=== PATIENT | male | born 1955 | race Caucasian/White ===

== ENCOUNTER → 2019-12-26 | Outpatient (CLI) | payer BC, SELFPAY ==
--- NOTE | 2019-12-27 10:09 | TELEMED_ITS ---
[facility] has confirmed receipt of a request for visit. This document confirms receipt of the order initiating the consult. To find the results of the consultation, please view the patient's reports for the scanned Telemed Consult.
== END | disposition home or self-care (01) ==
PROVIDERS: PCP Family Medicine; Referring Provider Psychiatry & Neurology Sleep Medicine; Visit Provider Psychiatry & Neurology Sleep Medicine
DX: R41.89 Other symptoms and signs involving cognitive functions and awareness (principal); F03.90 Unspecified dementia, unspecified severity, without behavioral disturbance, psychotic disturbance, mood disturbance, and anxiety; R47.01 Aphasia
CPT/HCPCS: 95819

== ENCOUNTER 2025-03-18 21:15 | Emergency (ER) | payer MEDICARE, SELFPAY ==
[2025-03-18 21:17] VITALS: BP 155/86; PULSE 65; RESP 16; TEMP 36.6; O2SAT 98
[2025-03-18 22:15] VITALS: BP 110/75; PULSE 55; O2SAT 100
--- NOTE | 2025-03-18 22:35 | CT_ITS ---
PROCEDURE: CT/Brain/Head without Contrast
[2025-03-18] MEDS: 0.9% Normal Saline (1000mL) 1,000 ML 1000 ML IV (22:53)
--- NOTE | 2025-03-18 22:56 | EX.ED.DYSGE1 ---
HPI History of Present Illness Chief Complaint: Confusion Narrative Narrative: Patient was seen and examined after presenting to ED for shortness of breath earlier but it seems to have resolved patient has some pretty advanced dementia states that they had an MRI on Thursday which showed a small amount of blood in the brain he had a because he has been having more advanced changes suspected to be associated with his dementia as she states that she came in understand him talking anymore at this point. [facility] Medical History Brain bleed HTN (hypertension) Dementia Home Medications ?Medication ?Instructions ?Recorded ?Last Taken ?Type donepezil 10 mg tablet 10 mg PO DAILY 03/18/25 Unknown History memantine 10 mg tablet 10 mg PO BID 03/18/25 Unknown History propranolol 60 mg capsule,24 60 mg PO DAILY 03/18/25 Unknown History hr,extended release Allergy/AdvReac Type Severity Reaction Status Date / Time No Known Allergies Allergy Verified 03/18/25 21:22 Surgical History History of hernia surgery Social History Smoking Status: Former smoker ROS ROS ED ROS Narrative Pertinent Positives:. Shortness of breath now resolved Pertinent Negatives: Fevers chills vomiting diarrhea chest pain pressure urinary symptoms abdominal pain black or bloody stools The remainder of review of systems negative unless otherwise stated in the HPI above. Systems reviewed including constitutional, psychiatric, cardiovascular, respiratory, integument, HENT, gastrointestinal. EXAM Physical Exam Narrative Exam Narrative: Patient is afebrile hemodynamically stable does not appear toxic or in distress he is oxygenating well on room air his lungs are clear normal heart sounds. His speech is very difficult to understand he mostly mumbles abdomen is soft nontender nondistended no palpable pulsatile mass. Intact and equal MSPs no lower extremity edema or calf tenderness. Const Vital Signs: 03/18/25 21:17 03/18/25 22:15 03/18/25 23:21 Temperature 97.9 F Temperature Source Oral Pulse Rate 65 55 L 57 L Respiratory Rate 16 16 Blood Pressure 155/86 H 110/75 120/80 Blood Pressure Mean 109 86 93 Pulse Ox 98 100 100 Oxygen Delivery Method Room Air 03/18/25 23:45 Temperature Temperature Source Pulse Rate 70 Respiratory Rate 20 H Blood Pressure 123/77 H Blood Pressure Mean 92 Pulse Ox 100 Oxygen Delivery Method Room Air MDM MDM MDM Narrative Medical decision making narrative: Nursing notes, triage notes, available previous documentation, and vital signs were reviewed. Any discrepancies noted were addressed. Differential Diagnoses: There is suspicion for ACS aortic etiology respiratory could be a consideration such as a URI lower suspicion for a PE lower suspicion for any neurologic changes or worsening intracranial bleeding Interventions: Fluids Given: 1 L normal saline Labs Reviewed: No leukocytosis leukopenia anemia electrolyte abnormality renal insufficiency lactic acid less than 1 no transaminitis troponin was less than 6 proBNP was less than 36 Respiratory panel was negative. Imaging Reviewed: Personally reviewed and interpreted by me: Chest x-ray I did not see any pneumonia edema widened mediastinum or pneumothoraces. I reviewed CT head I did not see any obvious abnormalities official interpretation is agreeable EKG: Sinus bradycardia rate of 55. There is some motion artifact. No ST segment elevation. No QTc prolongation. W[place] intervals otherwise appropriate. EKG interpretation is noted and agreed to in the EMR. The interpretation of this patient's EKG contributed directly to the care and management of this patient. Previous Documentation Reviewed: None available or applicable at this time. ED Course: Patient presenting with symptoms as described above however she states that once EMS arrived patient suddenly was better no more complaints as far shortness of breath he is acting appropriately so she just wants to get him evaluated and plans to go home afterwards for any significant complications. Patient would like to go home soon with his they feel comfortable going home return precautions follow-up recommendations provided patient stable for discharge This note was made utilizing voice recognition software. All attempts were made to correct spelling or other errors prior to note completion. However, due to the fast-paced nature of emergency medicine, some errors may still be present. Lab Data Labs: Laboratory Results - last 24 hr 03/18/25 03/18/25 03/18/25 20:55 22:05 22:52 WBC 8.6 RBC 5.18 Hgb 15.3 Hct 45.1 MCV 87.1 MCH 29.5 MCHC 33.9 RDW Std Deviation 41.3 RDW Coeff of Aditya 13.1 Plt Count 301 MPV 10.7 Immature Gran % (Auto) 0.300 Neut % (Auto) 74.4 H Lymph % (Auto) 16.1 L Willacy % (Auto) 6.5 Eos % (Auto) 2.2 Baso % (Auto) 0.5 Absolute Neuts (auto) 6.4 Absolute Lymphs (auto) 1.39 Nucleated RBC % 0 Sodium 141 Potassium 4.1 Chloride 106 Carbon Dioxide 25.5 Anion Gap 10 BUN 16 Creatinine 0.95 Estim Creat Clear Calc 76.84 Est GFR (MDRD) Non-Af 87 BUN/Creatinine Ratio 16.3 Glucose 90 Lactic Acid < 1.0 Calcium 9.6 Total Bilirubin 0.51 AST 23 ALT 13 Alkaline Phosphatase 82 Troponin T High Sens < 6 NT pro BNP II < 36 Total Protein 7.0 Albumin 4.1 Globulin 2.8 Albumin/Globulin Ratio 1.5 Radiography Diagnostic Testing: Clinical Impression(s) from Imaging Studies Brain CT 03/18/25 22:35 IMPRESSION: No acute cerebrovascular abnormalities. If clinical symptoms persist, further evaluation with MRI may be considered as clinically warranted. No intra or extra-axial acute hemorrhage. Bilateral cerebral microvascular ischemic changes with brain involutional changes. Reading Location: [place] [address] Chest X-Ray 03/18/25 23:10 IMPRESSION: No acute cardiopulmonary disease. Reading Location: [id number] Discharge Plan Triage Chief Complaint: Confusion ED Provider: Hilda Morales Dx/Rx/DC Orders Clinical Impression: Mild shortness of breath, History of intracranial hemorrhage, History of dementia Instructions: ED Dyspnea Prescriptions: No Action donepezil 10 mg tablet 10 mg PO DAILY propranolol 60 mg capsule,extended release 24 hr 60 mg PO DAILY memantine 10 mg tablet 10 mg PO BID Primary Care Provider: Jarrett Griggs Referrals: Jarrett Griggs MD [Primary Care Provider, Medical] Activity Restrictions/Additional Instructions: Follow-up with your primary care doctor if you are having worsening symptoms do not hesitate to return Print Language: Hungarian Disposition Disposition: Home, Self Care
[2025-03-18 23:04] LABS: Hematocrit 45.1 % (40-54); Hemoglobin 15.3 g/dL (13.0-16.5); Immature Granulocytes Count 0.030 X10^3/uL (0.0-0.0); Mean Corp Hgb Conc 33.9 g/dL (32-36); Mean Corpuscular Volume 87.1 fL (80-94); Mean Platelet Vol. 10.7 fl (6.2-12.0); NRBC Flagged by Analyzer 0 % (0-5); Platelet Count 301 K/mm3 (150-450); RBC Distribution Width CV 13.1 % (11.6-14.6); RBC Distribution Width SD 41.3 fl (35.1-43.9); Red Blood Count 5.18 M/mm3 (4.6-6.2); White Blood Count 8.6 K/mm3 (4.4-11.0)
--- NOTE | 2025-03-18 23:10 | RAD_ITS ---
PROCEDURE: RAD/Chest 1 View (Portable)
[2025-03-18 23:14] VITALS: BMI 26.6
[2025-03-18 23:21] VITALS: BP 120/80; PULSE 57; RESP 16; O2SAT 100
[2025-03-18 23:22] LABS: Troponin T High Sensitivity < 6 ng/L (<=22)
[2025-03-18 23:37] LABS: AST(SGOT) 23 U/L (<=37); Alanine Aminotransfer ALT/SGPT 13 U/L (<=46); Albumin, Serum 4.1 g/dL (3.4-4.8); Alkaline Phosphatase 82 U/L (40-129); Anion Gap 10 (5-15); BUN 16 mg/dL (4-19); BUN/Creat Ratio 16.3 RATIO (10-20); Calcium,Total 9.6 mg/dL (7.6-11.0); Carbon Dioxide 25.5 mmol/L (21.0-32.0); Chloride 106 mmol/L (98-108); Estimated Creatinine Clearance 76.84 ml/min (50-250); Globulin 2.8 g/dL (2.2-4.2); Glucose 90 mg/dL (70-99); Potassium 4.1 mmol/L (3.3-5.1); Pro- Brain NATRIURETIC PEPTIDE < 36 pg/mL (<=900)
[2025-03-18 23:45] VITALS: BP 123/77; PULSE 70; RESP 20; O2SAT 100
[2025-03-19 01:00] VITALS: BP 108/78
[2025-03-19 01:37] VITALS: BP 108/68; PULSE 71; RESP 16; TEMP 36.6; O2SAT 99
== END 2025-03-19 02:10 | disposition home or self-care (01) ==
PROVIDERS: Emergency Provider Specialist/Technologist Athletic Trainer; PCP Family Medicine; Visit Provider Specialist/Technologist Athletic Trainer
DX: R06.02 Shortness of breath (principal); F03.90 Unspecified dementia, unspecified severity, without behavioral disturbance, psychotic disturbance, mood disturbance, and anxiety; Z87.891 Personal history of nicotine dependence; I10 Essential (primary) hypertension; Z79.899 Other long term (current) drug therapy
CPT/HCPCS: 70450; 71045; 80053; 83605; 83880; 84484; 85025; 87631; 93005; 96360; 96361; 99285; A4216

== ENCOUNTER → 2025-04-04 | Outpatient (CLI) | payer MEDICARE, SELFPAY ==
--- NOTE | 2025-04-04 10:00 | ETH_PTH ---
PATIENT: FAROOQ SPEARS LOC: [facility] U#:[id number] AGE/SX: 69/M ROOM: RE04/04/[address]: Dr. Niall Regalado MD : [id number] BED: DIS: 04/04/2025 SPEC #: [id number] RECD: 04/04/25 15:00 STATUS: KLAUS REAnita #: [id number] GILBERT: 04/04/25 10:[address]: Niall Regalado DEPT: SURGICAL PATHOLOGY RECD BY: Henrry Luo ENTERED: 04/05/25 10:20 SP TYPE: ETH TISS OTHR DR: Dr. Jarrett Griggs MD Tissues: A - Ethmoid sinus, NOS Procedures: Decalcification bone/plaque Surgery Specimen Level IV HEADER OPERATION: Functional endoscopic sinus surgery PRE-OP DIAGNOSIS: Nasal congestion, other chronic sinusitis, polyp of nasal cavity TISSUE SUBMITTED: A- Left sinus contents MICROSCOPIC DIAGNOSIS A. Left sinus, contents, functional endoscopic sinus surgery: - Sinonasal mucosa with marked active chronic inflammation. - Trabecular bone with reactive changes. MICROSCOPIC DESCRIPTION Slides are reviewed. GROSS DESCRIPTION A. Received in formalin labeled with the patient's name and date of . Designated as left sinus contents is a 1.7 x 1.7 x 0.2 cm aggregate of guerrero tissue fragments and flecks of apparent bone. Entirely submitted in 1 cassette, following brief decalcification. SD 04/05/2025 CPT:45407,58652
== END | disposition home or self-care (01) ==
LOC: LABSPEC 15:18
PROVIDERS: PCP Family Medicine; Referring Provider Otolaryngology; Visit Provider Otolaryngology
DX: J32.8 Other chronic sinusitis (principal); J33.0 Polyp of nasal cavity; R09.81 Nasal congestion
CPT/HCPCS: 88305; 88311